=== PATIENT | female | born 1950 | race African-American/Black ===

== ENCOUNTER → 2016-06-02 | Outpatient (CLI) | payer MEDICARE, OTHER ==
[~2016-06-02] MED LIST: AMLO10TA4 PO; BIMA2.5D OP; BRIM5DRO3 OP; BUDE10.2 IH; CYCL10TA2 PO; DULO60CA6 PO; ESZO3TAB9 PO; FERR240T PO; GABA-586 PO; LORA10CA PO; METO100T5 PO; OMEP40CA2 PO; OXYC15TA PO; OXYC20TA34 PO; PROVENTIL HFA6.7 GM IH; VENTOLIN HFA18 GM IH; ZOLP5TAB PO
--- NOTE | 2016-06-03 04:29 | PAIN ---
DATE OF SERVICE: 06/02/2016 PROGRESS NOTE FOR PAIN CLINIC DIAGNOSES: 1. Lung cancer with metastases related pain. 2. Lumbar radiculopathy with post-lumbar laminectomy syndrome. HISTORY OF PRESENT ILLNESS: This patient is a 65-year-old female who returns for followup status post medication management with OxyContin and oxycodone, also, taking Flexeril for muscle relaxation. The patient has a spinal cord stimulator as well, reports good results with the stimulation coverage in her low back and legs. The patient has significant pain in her mid back and actually has metastases, which has developed in the right low back and the superficial tissues of the subcutaneous region of the low back on the right side. The patient reports she is starting chemo again on 06/06/2016, next Monday and she has had radiation. She had a port placed as well, otherwise, doing fairly well. The patient reports her pain can be as high as an 8 on a scale 10 currently only at 3 on a scale 10 on her exam today. The patient reports the pain medicine is doing well with about 80% improvement without significant side effects. The patient is taking oxycodone at 20 mg on p.r.n. basis ____ and OxyContin at 20 mg every 12 hours. Again, no significant side effects noted. The patient reports no new motor or sensory deficits or other changes. Somewhat depressed today about the starting of the new doses of chemo next week, but otherwise seems to be in good spirits. PHYSICAL EXAMINATION: VITAL SIGNS: The patient's blood pressure 123/77, pulse is 105, respirations 20, temperature is 97.5 degrees Fahrenheit, height is 5 feet 3.5 inches, weighs 132 pounds. GENERAL: The patient is awake, alert, oriented, appropriate, very pleasant demeanor. HEENT: Head shows normocephalic, atraumatic. Extraocular movements are intact and symmetrical. Oral cavity, mucous membranes are moist and pink. Dentition is intact. NECK: Shows anterior throat supple without palpable lymphadenopathy noted. Swallow reflex is symmetrical. Neck shows full rotational motion of cervical spine without significant tenderness or difficulty. CHEST: Chest shows normal inspection. The patient has a [place] which has been placed in the right anterior chest ____ subclavian region. Otherwise, is normal on inspection. Breath sounds are clear bilaterally. HEART: Shows S1 and S2 clear. No murmurs are auscultated. ABDOMEN: Obese, but soft, nontender, nondistended. No palpable organomegaly is noted. No rebound or guarding demonstrated. BACK: The patient's back shows grossly midline spine. Normal appearing cervical lordotic curvature, thoracic kyphotic curvature and some minor flattening of lumbar lordotic curvature. Well healed surgical scars noted from stimulator placement and stimulator battery easily palpable over the right posterior gluteus. There is an area in the lower right lumbar distribution superficial nodule which is about 4 cm in diameter, which is tender, but mobile and patient reports that this is newly diagnosed metastases, easily identifiable and easily palpated without radiation. That is somewhat mobile onto the skin. EXTREMITIES: The patient's lower extremities showed deep tendon reflexes at 1+ in the patellar and tendo calcaneus tendons, remaining rate is strong at 5/5 dorsiflexion, extension, quadriceps and hamstring flexion bilaterally. Options were discussed with the patient at this time. The patient's old chart was reviewed as her current medication regimen and updated. Current review of systems updated today as well. We will refill the patient's OxyContin, oxycodone for a 90-day. Also, Flexeril with instructions, side effects to be aware of discussed with each of medications. The patient will also follow up with her oncologist and pursue the new start course of chemotherapy on next Monday. TYRESE LAWLER MD DR: LESLIE/ion JOB#: [id number] / [id number]
== END | disposition home or self-care (01) ==
LOC: PNCL 11:40
PROVIDERS: ATTEND Anesthesiology
DX: C34.90 Malignant neoplasm of unspecified part of unspecified bronchus or lung (principal); G89.3 Neoplasm related pain (acute) (chronic); M54.16 Radiculopathy, lumbar region; M96.1 Postlaminectomy syndrome, not elsewhere classified
CPT/HCPCS: G0463

== ENCOUNTER → 2016-09-20 | Outpatient (CLI) | payer MEDICARE, OTHER ==
[~2016-09-20] MED LIST changes: +ESZO3TAB28 PO; -ESZO3TAB9 PO
--- NOTE | 2016-09-21 04:07 | PAIN ---
DATE OF SERVICE: PROGRESS NOTE FOR PAIN CLINIC DIAGNOSES: 1. Lumbar radiculopathy with post-lumbar laminectomy syndrome. 2. Lung cancer-related pain. HISTORY OF PRESENT ILLNESS: The patient is a 66-year-old female, who returns for followup, status post medication management with both OxyContin and oxycodone. The patient reports that she has been doing fairly well. She is starting a new round of chemotherapy and radiation therapy, starting tomorrow for her metastatic lung carcinoma. The patient reports that she feels very tired, fatigued, was having some constipation, but otherwise, the medication has relieved her off about 75-80% of the pain without other side effects, except for constipation. The patient is trying to keep herself hydrated, but finds it difficult with having a low energy and low appetite with the chemotherapy that she is taking. The patient reports otherwise doing well, tolerating her medications without significant problems. The patient reports still significant pain in the low back, mid back, and left leg, also in the right flank as she has some metastases to cutaneous nodules in this region. The patient's old chart was reviewed as well as her current medication regimen. PHYSICAL EXAMINATION: VITAL SIGNS: The patient's blood pressure is 124/82, pulse 116, respirations 26, temperature 97.8 degrees Fahrenheit, and weight 124 pounds. GENERAL: The patient is awake, alert, oriented, and appropriate, has a very pleasant demeanor. HEENT: Head shows normocephalic, atraumatic. The patient wears eyeglasses. Extraocular movements are intact and symmetrical. Oral cavity, mucous membranes are moist and pink. Dentition is intact. NECK: Shows anterior throat supple without palpable lymphadenopathy noted. Swallow reflex is symmetrical. CHEST: Shows normal on inspection. Breath sounds are clear to auscultation bilaterally. HEART: Shows S1 and S2 clear. No murmurs auscultated. ABDOMEN: Soft, nontender, and nondistended. BACK: Shows spine grossly midline with some well-healed surgical scarring noted from spinal cord stimulator placement and previous lumbar surgery. Spinal cord stimulator battery is easily palpable. The patient reports that it is still working well. She is keeping it charged and has good coverage with it. No tenderness with palpation over the stimulator battery or the incisions. The patient does have a cutaneous nodule in the right posterior flank at the upper lumbar distribution which is moderately tender and approximately 8 cm in width. Options were discussed with the patient. The patient's old chart was reviewed, as well as her current medication regimen updated. Current review of systems updated today as well, and we will refill the patient's oxycodone as well as OxyContin. The patient will be given a 90-day prescription with instructions and side effects to be aware of. Also, we will try Movantik samples - this may help with the constipation. The patient was cautioned as to its use as well as side effects with it and she will follow up in approximately 90 days or sooner as necessary. I asked her to call within the next few days with the results of the Movantik as well. TYRESE LAWLER MD DR: LESLIE/ion JOB#: [id number] / [id number]
== END | disposition home or self-care (01) ==
LOC: PNCL 13:25
PROVIDERS: ATTEND Anesthesiology
DX: M54.16 Radiculopathy, lumbar region (principal); M96.1 Postlaminectomy syndrome, not elsewhere classified; G89.3 Neoplasm related pain (acute) (chronic)
CPT/HCPCS: G0463